=== PATIENT | male | born 1990 | race Caucasian/White ===

== ENCOUNTER → 2022-12-01 | Outpatient (CLI) | payer BC ==
--- NOTE | 2022-12-01 11:50 | MR ---
EXAMINATION TYPE: MR knee LT wo con DATE OF EXAM: 12/01/2022 COMPARISON: NONE HISTORY: Left knee pain and swelling, hx injury/surgery 2019. TECHNIQUE: Multiplanar, multisequence images of the knee is performed without IV contrast. FINDINGS: MEDIAL MENISCUS: Truncated appearance to the posterior horn. Some irregular linear signal in the remn ant posterior horn extends to inferior articular surface seen best on coronal image 27. LATERAL MENISCUS: Anterior and posterior horns are intact without tear. CRUCIATE LIGAMENTS: The anterior and posterior cruciate ligaments are intact and unremarkable. COLLATERAL LIGAMENTS: The medial collateral ligament and lateral collateral ligament complex are inta ct and unremarkable. EXTENSOR MECHANISM: Visualized quadriceps and patellar tendons are intact. EFFUSION: Small to moderate size suprapatellar joint effusion. POPLITEAL CYST: No popliteal/ha cyst. TRICOMPARTMENT SPACES: Mild to moderate tricompartment joint space loss and spurring. CARTILAGE: Tricompartment articular cartilage is preserved. BONE MARROW SIGNAL: Susceptibility artifact from prior surgery noted anterior aspect of the proximal tibial metadiaphysis. There is focus of diminished T1 and more prominent surrounding increased T2 sig nal involving the lateral aspect of the distal medial femoral condyle measuring approximately 1.5 cm transversely. No bony fragmentation seen. Increased signal in the overlying articular cartilage is no rosy OTHER: No additional significant abnormality is appreciated. IMPRESSION: 1. Evidence of prior surgery. There is suspected partial meniscectomy change. There is new linear tea r in the remnant posterior horn of the medial meniscus. 2. Focus of osteochondritis dissecans involving the lateral aspect of the distal medial femoral condy le without free fragment noted.
== END | disposition home or self-care (01) ==
LOC: RADMRIMAIN 10:13
PROVIDERS: ATTEND Orthopaedic Surgery
DX: S83.242A Other tear of medial meniscus, current injury, left knee, initial encounter (principal); M93.262 Osteochondritis dissecans, left knee